=== PATIENT | female | born 1935 | race Caucasian/White ===

== ENCOUNTER 2017-05-05 15:33 | Emergency (ER) | payer OTHER ==
[2017-05-05 16:49] LABS: BASOPHIL % 0.3 % (0-2); PLATELET COUNT 213 x10^3mcL (130-400)
[2017-05-05 16:54] LABS: RED CELL DISTRIBUTION WIDTH 15.5 % (11.5-14.5)
[2017-05-05 17:01] LABS: T4(THYROXINE) 8.5 ug/dL (4.7-13.3)
[2017-05-05 17:09] LABS: CALCIUM 9.3 mg/dL (8.5-10.1); CARBON DIOXIDE 31.3 mmol/L (21-32); CHLORIDE SERUM 101 mmol/L (98-107); GLUCOSE SERUM 86 mg/dL (74-106); POTASSIUM SERUM 4.8 mmol/L (3.5-5.1); SODIUM SERUM 138 mmol/L (136-145)
[2017-05-05 17:13] LABS: ALBUMIN 3.8 g/dL (3.4-5.0); ALKALINE PHOSPHATASE 86 U/L (46-116); ALT/SGPT 27 U/L (14-59); AMYLASE 37 U/L (25-115); AST/SGOT 25 U/L (15-37); BILIRUBIN TOTAL 0.82 mg/dL (0.20-1.00); LIPASE 143 IU/L (73-393); TOTAL PROTEIN, SERUM 7.7 g/dL (6.4-8.2)
[2017-05-05 17:33] LABS: microscopic required? NO
[2017-05-05 18:10] LABS: UA SPECIFIC GRAVITY 1.025 (1.005-1.035); urine erythrocyte NEGATIVE (NEGATIVE)
[2017-05-05 19:05] VITALS: BP 137/64
== END 2017-05-05 19:30 | disposition home or self-care (01) ==
LOC: ED 15:33
PROVIDERS: Emergency Medicine
DX: K59.00 Constipation, unspecified (principal); I10 Essential (primary) hypertension
CPT/HCPCS: 83880; J7030